=== PATIENT | female | born 1995 | race Caucasian/White ===

== ENCOUNTER 2016-04-10 14:03 | Outpatient (CLI) | payer OTHER ==
[~2016-04-10] VITALS: Ht 167.6 cm; Wt 61.0 kg
[2016-04-10] MEDS ORDERED: PRENTAB9 PO (14:07)
[2016-04-10 14:14] VITALS: BP 125/69
[2016-04-10] MEDS ORDERED: D5/LACTATED RINGERS 1000 ML IV ONE (15:00)
[2016-04-10] MEDS ORDERED: MVI -ADULT INJECTION 10 ML VIAL IV ONE (15:00)
[2016-04-10] MEDS ORDERED: BUTORPHANOL 2 MG/ML INJ (J0595) IV ONE (15:15)
[2016-04-10 15:25] LABS: MEAN CORPUSCULAR HEMOGLOBIN 28.3 pg (27.0-33.0); MEAN CORPUSCULAR HGB CONC 34.8 g/dl (32.0-36.5); MEAN CORPUSCULAR VOLUME 81.2 fl (80.0-96.0); RED CELL DISTRIBUTION WIDTH 12.8 % (11.5-14.5); WHITE BLOOD COUNT 13.8 K/mm3 (4.0-10.0)
[2016-04-10] MEDS ORDERED: LR IV ONE (15:30)
[2016-04-10] MEDS ORDERED: D5 IV ONE (15:30)
[2016-04-10] MEDS ORDERED: MULTIVITAMIN ADULT IV ONE (15:30)
[2016-04-10 15:46] LABS: ALBUMIN/GLOBULIN RATIO 0.94 (1.00-1.93); BILIRUBIN,DIRECT 0.1 MG/DL (0.0-0.2); BILIRUBIN,TOTAL 0.5 MG/DL (0.2-1.0); TOTAL PROTEIN 6.2 GM/DL (6.4-8.2)
--- NOTE | 2016-04-10 15:50 | REP ---
Clinical: Acute right upper quadrant abdominal pain. Technique: Turpin scale ultrasound using curved array transducer. Findings: The liver and pancreas are normal in contour, size, and echogenicity without focal hepatic or pancreatic lesions identified. The gallbladder is normal without gallstones, wall thickening or pericholecystic fluid. No biliary ductal dilatation is appreciated, and the common bile duct measures 2.5 mm diameter. The right kidney is normal in reniform shape and measures 10.7 x 4.7 x 4.5 cm with mild hydronephrosis likely secondary to . No ascites. Visualized portions of the abdominal aorta normal. Impression: Mild right hydronephrosis possibly related to . Signed by Adria Martinez MD 04/10/2016 03:41 P
[2016-04-10] MEDS ORDERED: ONDANSETRON 4MG/2ML VIAL (J2405) IV PRN (18:45)
== END 2016-04-10 22:27 | disposition home or self-care (01) ==
LOC: M LDO 14:03
PROVIDERS: ATTEND Advanced Practice Midwife
DX: O99.89 Other specified diseases and conditions complicating pregnancy, childbirth and the puerperium (principal); N13.30 Unspecified hydronephrosis; R10.11 Right upper quadrant pain; R11.2 Nausea with vomiting, unspecified; Z87.891 Personal history of nicotine dependence; Z3A.32 32 weeks gestation of pregnancy
CPT/HCPCS: 76705; 80076; 82150; 83690; 85027; 96374; 96375; J0595; J2405

== ENCOUNTER → 2016-04-20 | Outpatient (CLI) | payer OTHER ==
[~2016-04-20] MED LIST: PRENTAB9 PO
--- NOTE | 2016-04-20 15:56 | REP ---
Clinical: Growth discrepancy; size less than dates. Comparison: 03/25/2016 . Findings: Examination demonstrates a single live intrauterine in cephalic presentation. motion is identified by technologist. Placenta is noted posterior fundally and grade one without evidence for placenta previa or abruption. Amniotic fluid volume is normal. Cervix measures 3.1 cm in length and appears closed. No evidence for nuchal cord. Gestational age by first ultrasound 34 weeks 2 days with PRIYANKA 05/30/2016 . Gestational age by current measurements 32 weeks 1 day with PRIYANKA 06/14/2016 . FHR equals 141 beats per minute. BPD 8.5 cm 34 weeks 0 days HC 29.6 32 weeks 5 days AC 28.6 32 weeks 5 days FL 6.1 31 weeks 5 days HC/AC ratio 1.03 Estimated weight 1985 grams ( 16th percentile based on age by first ultrasound). Amniotic fluid index equals 10.7 cm (8.1 - 24.8) Impression: Single live advanced gestation in cephalic presentation. Estimated weight within normal range. No gross abnormalities identified Signed by Adria Martinez MD 04/20/2016 03:48 P
== END | disposition home or self-care (01) ==
LOC: M SMT 14:45
PROVIDERS: ATTEND Obstetrics & Gynecology
DX: O26.843 Uterine size-date discrepancy, third trimester (principal); Z36 Encounter for antenatal screening of mother; Z3A.32 32 weeks gestation of pregnancy

== ENCOUNTER → 2016-05-16 | Outpatient (REF) | payer OTHER | END | disposition home or self-care (01) | LOC: M LAB REF 17:40 | PROVIDERS: ATTEND Advanced Practice Midwife | DX: Z34.83 Encounter for supervision of other normal pregnancy, third trimester (principal); Z36 Encounter for antenatal screening of mother; Z3A.00 Weeks of gestation of pregnancy not specified ==

== ENCOUNTER → 2016-05-26 | Outpatient (CLI) | payer OTHER, MEDICAID ==
--- NOTE | 2016-05-26 11:59 | REP ---
Clinical: Size discrepancy . Comparison: 04/20/2016 . Findings: Examination demonstrates a single live intrauterine in cephalic presentation. motion is identified by technologist. Placenta is noted anteriorly and grade one without evidence for placenta previa or abruption. Amniotic fluid volume is normal. Gestational age by LMP 39 weeks 3 days with PRIYANKA 05/30/2016 . Gestational age by current measurements 36 weeks 5 days with PRIYANKA 06/18/2016 . FHR equals 141 beats per minute. BPD 9.2 cm 37 weeks 2 days HC 32.9 cm 37 weeks 2 days AC 33.9 cm 37 weeks 6 days FL 7.1 cm 36 weeks 3 days HC/AC ratio 0.97 Estimated weight 3188 grams ( 33rd percentile). Amniotic fluid index equals 7.7 cm SD ratio equals 3.14. Impression: Single live advanced gestation in cephalic presentation demonstrating appropriate interval growth. Nuchal cord cannot be excluded. Estimated weight within normal range. Amniotic fluid volume is lower limits of normal. Signed by Adria Martinez MD 05/26/2016 11:50 A
== END ==
LOC: M SMT 10:49
PROVIDERS: ATTEND Advanced Practice Midwife
DX: O26.843 Uterine size-date discrepancy, third trimester (principal)

== ENCOUNTER 2016-06-14 22:51 | Inpatient (IN) | payer OTHER, MEDICAID ==
[~2016-06-14] VITALS: Ht 167.6 cm; Wt 66.0 kg
[2016-06-14] MEDS ORDERED: MULT1TAB10 PO (23:15)
[2016-06-14 23:46] LABS: MEAN CORPUSCULAR HGB CONC 33.1 g/dl (32.0-36.5); MEAN CORPUSCULAR VOLUME 81.4 fl (80.0-96.0); RED CELL DISTRIBUTION WIDTH 14.1 % (11.5-14.5); WHITE BLOOD COUNT 11.7 K/mm3 (4.0-10.0)
[2016-06-15] VITALS (11 sets, daily range): BP systolic 112–145; BP diastolic 58–84
[2016-06-15] MEDS: miSOPROStol 50 MCG 1/2 TAB (S0191) PO SCH ×4 (00:31→11:45)
--- NOTE | 2016-06-15 02:45 | HPE ---
DATE OF ADMISSION: 06/14/2016 20-year-old G1, P0, female at 41-/17 weeks gestation by seven week ultrasound, estimated date of confinement (EDC) of 06/06/2016, presents for labor induction. She denies contractions or vaginal bleeding. COURSE: Patient initiated care at seven weeks gestation on 10/20/2015. Her first trimester blood pressure was 114/66, weight 135 pounds. was essentially unremarkable. MEDICAL HISTORY: Noncontributory. SURGICAL HISTORY: None. ALLERGIES: CEFTIN. SOCIAL HISTORY: The patient is . She smokes an occasional cigarette. Denies alcohol or drug use. FAMILY HISTORY: Noncontributory. PHYSICAL EXAMINATION: VITAL SIGNS: Blood pressure 124/70, in no apparent distress. HEAD AND NECK: Normal. LUNGS: Clear. HEART: Regular rate and rhythm. ABDOMEN: Nontender, gravid. heart tones category one. Contractions are irregular. STERILE VAGINAL EXAM: Cervix 2 cm, 70%, -2 station, posterior vertex. EXTREMITIES: Nontender. LABS: Blood type is O positive. Rubella immune. RPR nonreactive. Diabetes screen 100. GBS positive on 05/16/2016. ASSESSMENT: 20-year-old G1 at 41-1/7 weeks gestation presents for labor induction. Risks for induction were discussed. Antibiotics were started for group B strep status.
[2016-06-15] MEDS ORDERED: PROMETHAZINE INJ 25 MG/ML VIAL (J2550) IV PRN (08:15)
[2016-06-15] MEDS ORDERED: PENICILLIN G POTASSIUM IV 5 MU in D5W MINI-BAG PLUS 100 ML IV ONE (09:00)
[2016-06-15] MEDS ORDERED: BUTORPHANOL 2 MG/ML INJ (J0595) IV ONE (09:00)
[2016-06-15] MEDS ORDERED: BUTORPHANOL 2 MG/ML INJ (J0595) IV PRN (11:00)
[2016-06-15] MEDS ORDERED: OXYTOCIN 30 UNITS IN 0.9% NaCl 500ML IV BAG (J2590) As Ordered ONE (11:35)
[2016-06-15] MEDS ORDERED: PENICILLIN G POTASSIUM IV 2.5 MU in D5W 100 ML IV SCH (13:00)
--- NOTE | 2016-06-15 13:55 | DN ---
DATE OF DELIVERY: 06/15/2016 TIME OF : 12:07 GENDER: Female. SCORES: 9 and 9. WEIGHT: 3138 grams or 6 pounds 15 ounces. ANESTHESIA: None. LACERATIONS: None. COUNTS: Five laparotomy sponges accounted for prior to and after delivery. DELIVERY NOTE: On 06/15/2016, Mrs. Ramey, a 20-year-old, 1, now para 1 had a spontaneous vaginal delivery of a liveborn female . scores of 9 and 9. Weight 3138 grams or 6 pounds 15 ounces. Head was delivered OA. There was a nuchal cord that was manually reduced, followed by delivery of shoulders and corpus. The infant was then handed to the mother with good cry. Cord was clamped times two and was cut by the father of the baby under my direction. The placenta was then drained and delivered grossly intact. A premix bag of 500 mL of normal saline with 30 units of Pitocin was then bolused, along with uterine massage until the uterus was firm. On inspection, cervix, vagina, perineum were grossly intact and hemostatic. Mother and baby recovering in stable condition. The couple has decided to name their daughter, Marlena.
[2016-06-15] MEDS ORDERED: OXYTOCIN DRIP 30 UNITS in APPROPRIATE DILUENT 1 EA IV SCH (17:23)
[2016-06-15] MEDS ORDERED: ANUSOL HC CREAM 30GM TOP PRN (17:30)
[2016-06-15] MEDS ORDERED: DOCUSATE SODIUM 100 MG CAP PO PRN (17:30)
[2016-06-15] MEDS ORDERED: ACETAMINOPHEN 500 MG TAB PO PRN (17:30)
[2016-06-15] MEDS ORDERED: METHYLERGONOVINE MALEATE 0.2 MG TAB PO PRN (17:30)
[2016-06-15] MEDS ORDERED: DIBUCAINE 1% OINTMENT 30GM TOP PRN (17:30)
[2016-06-15] MEDS ORDERED: IBUPROFEN 800 MG TAB PO PRN (17:30)
[2016-06-15] MEDS ORDERED: RHOGAM 300 MCG (1500 IU) INJ (J2790) IM SCH (17:30)
[2016-06-15] MEDS ORDERED: MOM 30ML SUSPENSION UDC PO PRN (17:30)
[2016-06-15] MEDS ORDERED: MEASLES,MUMPS,RUBELLA VACCINE INJ (MMR-II) (90707) SC SCH (17:30)
[2016-06-16 06:07] VITALS: BP 103/55
[2016-06-16 09:00] VITALS: BP 103/55
[2016-06-16] MEDS ORDERED: ADACEL/BOOSTRIX VACCINE (DIPHTH/PERTUSS/ACELL/TETANUS)0.5ML SYR (90715) IM SCH (09:00)
[2016-06-16] MEDS: PRENATAL VITAMIN TAB PO SCH (09:06)
[2016-06-16 11:57] VITALS: BP 120/72
[2016-06-16] MEDS ORDERED: ADACEL/BOOSTRIX VACCINE (DIPHTH/PERTUSS/ACELL/TETANUS)0.5ML SYR (90715) IM ONE (16:00)
[2016-06-16 18:18] VITALS: BP 134/60
[2016-06-17 05:43] VITALS: BP 122/75
[2016-06-17] MEDS: PRENATAL VITAMIN TAB PO SCH (08:13)
[2016-06-17] MEDS ORDERED: ACET50TA PO (09:48)
[2016-06-17] MEDS ORDERED: IBUP-1114 PO (09:49)
== END 2016-06-17 14:15 | disposition home or self-care (01) | DRG 775 ==
LOC: M LDI 22:51 → M OBS 06-15 14:43
PROVIDERS: ADMIT Specialist; ATTEND Specialist
PROC: 3E033VJ Introduction of Other Hormone into Peripheral Vein, Percutaneous Approach (ICD-10-PCS; 2016-06-14)
PROC: 10E0XZZ Delivery of Products of Conception, External Approach (ICD-10-PCS; principal; 2016-06-15)
DX: O48.0 Post-term pregnancy (principal); Z37.0 Single live birth; Z3A.41 41 weeks gestation of pregnancy; O99.820 Streptococcus B carrier state complicating pregnancy

== ENCOUNTER → 2016-06-28 | Outpatient (REF) | payer OTHER, MEDICAID ==
[~2016-06-28] MED LIST changes: +ACET50TA PO; +IBUP-1114 PO; +MULT1TAB10 PO
== END ==
LOC: M LAB REF 16:47
PROVIDERS: ATTEND Internal Medicine
DX: R30.0 Dysuria (principal); R35.0 Frequency of micturition

== ENCOUNTER 2016-07-10 23:31 | Emergency (ER) | payer OTHER, MEDICAID ==
[~2016-07-10] VITALS: Ht 167.6 cm; Wt 59.4 kg
[2016-07-11] MEDS ORDERED: DERMABOND TOPICAL SKIN ADHESIVE TOP ONE (02:00)
[2016-07-11] MEDS ORDERED: TETANUS/DIPHTHERIA TOX ADSORB ADULT 0.5ML SYR/VIAL (90714) IM ONE (02:00)
[2016-07-11 02:15] VITALS: BP 126/65
--- NOTE | 2016-07-11 08:00 | REP ---
Right index finger four views: There is no fracture or dislocation. Mineralization joint spaces are normal. Soft tissue injury of the distal phalange is noted. There is no radiopaque foreign body. Signed by Tolu Nova MD 07/11/2016 07:51 A
== END 2016-07-11 02:21 | disposition home or self-care (01) ==
LOC: M ED 07-11 01:47
DX: S61.210A Laceration without foreign body of right index finger without damage to nail, initial encounter (principal); W45.8XXA Other foreign body or object entering through skin, initial encounter; Y92.019 Unspecified place in single-family (private) house as the place of occurrence of the external cause; Y93.89 Activity, other specified; Y99.8 Other external cause status; Z88.1 Allergy status to other antibiotic agents; R00.0 Tachycardia, unspecified; Z87.440 Personal history of urinary (tract) infections; F41.9 Anxiety disorder, unspecified

== ENCOUNTER → 2016-07-21 | Outpatient (REF) | payer OTHER, MEDICAID | LOC: M LAB REF 18:47 | PROVIDERS: ATTEND Internal Medicine | DX: Z53.9 Procedure and treatment not carried out, unspecified reason (principal) ==

== ENCOUNTER → 2017-01-03 | Outpatient (REF) | payer OTHER, MEDICAID | LOC: M LAB REF 16:31 | PROVIDERS: ATTEND Nurse Practitioner Family | DX: R35.0 Frequency of micturition (principal); J34.81 Nasal mucositis (ulcerative) ==

== ENCOUNTER → 2017-03-15 | Outpatient (REF) | payer OTHER, MEDICAID | LOC: M LAB REF 12:50 | PROVIDERS: ATTEND Internal Medicine | DX: J02.9 Acute pharyngitis, unspecified (principal) ==

== ENCOUNTER → 2017-11-23 | Outpatient (CLI) | payer OTHER ==
[2017-11-23 13:24] LABS: BASO % 0.3 % (0.0-1.0); EOS # 0.1 10^3/uL (0.0-0.50); EOS % 0.6 % (0.0-3.0); HEMATOCRIT 36.7 % (36.0-47.0); HEMOGLOBIN 12.6 g/dl (12.0-15.5); IMMATURE GRANULOCYTE % 0.4 % (0-3.0); LYMPH # 1.6 10^3/uL (1.5-6.5); LYMPH % 16.4 % (24.0-44.0); MEAN CORPUSCULAR HEMOGLOBIN 28.2 pg (27.0-33.0); MEAN CORPUSCULAR HGB CONC 34.3 g/dl (32.0-36.5); MEAN CORPUSCULAR VOLUME 82.1 fl (80.0-96.0); MONO # 0.4 10^3/uL (0.0-0.8); MONO % 4.1 % (0.0-5.0); NEUTROPHILS # 7.5 10^3/uL (1.8-7.7); NEUTROPHILS % 78.2 % (36.0-66.0); PLATELET COUNT, AUTOMATED 253 10^3/uL (150-450); RED BLOOD COUNT 4.47 10^6/uL (4.00-5.40); RED CELL DISTRIBUTION WIDTH 13.6 % (11.5-14.5); WHITE BLOOD COUNT 9.6 10^3/uL (4.0-10.0)
[2017-11-23 17:10] LABS: CHLAMYDIA DNA AMPLIFICATION NEGATIVE (NEGATIVE); GC DNA AMPLIFICATION NEGATIVE (NEGATIVE)
[2017-11-24 09:50] LABS: RUBELLA IgG QUALITATIVE IMMUNE (IMMUNE)
[2017-11-24 09:59] LABS: HBsAg Prenatal NEGATIVE (NEGATIVE)
[2017-11-24 10:19] LABS: HEPATITIS C VIRUS ABY INDEX 0.1 INDEX (<0.8)
[2017-11-24 10:20] LABS: HIV 1&2 SCREEN CENTAUR NEGATIVE (NEGATIVE)
== END ==
LOC: M LAB 12:18
DX: Z34.81 Encounter for supervision of other normal pregnancy, first trimester (principal); Z36.89 Encounter for other specified antenatal screening; Z3A.09 9 weeks gestation of pregnancy
CPT/HCPCS: 86762

== ENCOUNTER → 2018-01-15 | Outpatient (CLI) | payer OTHER ==
[2018-01-15 13:46] LABS: HEMATOCRIT 34.7 % (36.0-47.0); HEMOGLOBIN 11.7 g/dl (12.0-15.5); MEAN CORPUSCULAR HEMOGLOBIN 28.3 pg (27.0-33.0); MEAN CORPUSCULAR HGB CONC 33.7 g/dl (32.0-36.5); MEAN CORPUSCULAR VOLUME 83.8 fl (80.0-96.0); PLATELET COUNT, AUTOMATED 241 10^3/uL (150-450); RED BLOOD COUNT 4.14 10^6/uL (4.00-5.40); RED CELL DISTRIBUTION WIDTH 12.9 % (11.5-14.5); WHITE BLOOD COUNT 7.2 10^3/uL (4.0-10.0)
[2018-01-15 14:16] LABS: GLUCOSE CHALLENGE TEST 1 HOUR 84 MG/DL (LESS THAN 140)
== END ==
LOC: M SMT 10:22
DX: Z34.83 Encounter for supervision of other normal pregnancy, third trimester (principal); Z36.89 Encounter for other specified antenatal screening
CPT/HCPCS: 82950

== ENCOUNTER → 2018-08-24 | Outpatient (REF) | payer OTHER ==
[~2018-08-24] MED LIST changes: -ACET50TA PO; +MAPA500T2 PO
== END ==
LOC: M LAB REF 18:53
PROVIDERS: ATTEND Specialist
DX: Z12.4 Encounter for screening for malignant neoplasm of cervix (principal)

== ENCOUNTER → 2022-11-15 | Outpatient (REF) | payer OTHER | LOC: M LAB REF 20:49 | PROVIDERS: ATTEND Physician Assistant Medical | DX: J02.9 Acute pharyngitis, unspecified (principal) ==

== ENCOUNTER → 2022-12-13 | Outpatient (CLI) | payer OTHER | LOC: M RAD 12:48 | PROVIDERS: ATTEND Physician Assistant | DX: J20.9 Acute bronchitis, unspecified (principal) ==

== ENCOUNTER → 2022-12-13 | Outpatient (REF) | payer OTHER | LOC: M LAB REF 12:41 | PROVIDERS: ATTEND Physician Assistant | DX: J20.9 Acute bronchitis, unspecified (principal) ==

== ENCOUNTER 2023-02-01 12:32 | Emergency (ER) | payer OTHER ==
[~2023-02-01] VITALS: Ht 167.6 cm; Wt 70.7 kg
[2023-02-01] MEDS ORDERED: AMIT10TA7 (12:39)
[2023-02-01] MEDS ORDERED: OFAT20PE (12:39)
[2023-02-01] MEDS ORDERED: MIREIUD (12:41)
[2023-02-01] MEDS ORDERED: DOXY-443 PO (15:43)
[2023-02-01 15:50] VITALS: BP 136/72; TEMP 98.9; O2SAT 98
== END 2023-02-01 15:52 | disposition home or self-care (01) ==
LOC: M ED 12:32
DX: L03.313 Cellulitis of chest wall (principal); Z88.0 Allergy status to penicillin; Z88.1 Allergy status to other antibiotic agents; Z79.810 Long term (current) use of selective estrogen receptor modulators (SERMs); Z79.2 Long term (current) use of antibiotics; Z79.899 Other long term (current) drug therapy

== ENCOUNTER → 2023-03-06 | Outpatient (REF) ==
[~2023-03-06] MED LIST changes: +AMIT10TA7; +DOXY-443 PO; +MIREIUD; +OFAT20PE
[2023-03-06 12:20] LABS: RSV AMPLIFICATION NEGATIVE (NEGATIVE)
== END ==
LOC: M EMP 08:11
PROVIDERS: ATTEND Family Medicine
DX: Z53.9 Procedure and treatment not carried out, unspecified reason (principal); Z11.52 Encounter for screening for COVID-19

== ENCOUNTER → 2023-05-04 | Outpatient (REF) | payer OTHER | LOC: M LAB REF 16:12 | PROVIDERS: ATTEND Physician Assistant | DX: J02.9 Acute pharyngitis, unspecified (principal) ==

== ENCOUNTER → 2023-05-08 | Outpatient (REF) | LOC: M EMP 08:27 | PROVIDERS: ATTEND Family Medicine | DX: Z53.9 Procedure and treatment not carried out, unspecified reason (principal) ==

== ENCOUNTER 2023-07-06 07:41 | Outpatient (RCR) | payer OTHER | END 2023-07-09 | LOC: M PT 07:41 | PROVIDERS: ATTEND Physician Assistant | DX: M25.511 Pain in right shoulder (principal); M54.41 Lumbago with sciatica, right side ==

== ENCOUNTER → 2023-08-08 | Outpatient (REF) | payer OTHER ==
[~2023-08-08] MED LIST changes: +DOXY-323 PO; -DOXY-443 PO
== END ==
LOC: M SFHCWAGY 14:54
PROVIDERS: ATTEND Nurse Practitioner Family
DX: R87.610 Atypical squamous cells of undetermined significance on cytologic smear of cervix (ASC-US) (principal); R10.2 Pelvic and perineal pain

== ENCOUNTER → 2023-08-08 | Outpatient (RCR) | payer OTHER | LOC: M PT 07-12 12:22 | PROVIDERS: ATTEND Physician Assistant | DX: M25.511 Pain in right shoulder (principal) | CPT/HCPCS: 87086; 87624; 97010; 97110; 97140; G0123 ==

== ENCOUNTER → 2023-09-28 | Outpatient (CLI) | payer OTHER ==
[2023-09-28 15:02] LABS: BASO # 0.1 10^3/uL (0.0-0.2); BASO % 0.8 % (0.0-1.0); EOS # 0.1 10^3/uL (0.0-0.5); EOS % 1.2 % (0.0-3.0); HEMATOCRIT 43.9 % (36.0-47.0); HEMOGLOBIN 14.8 g/dl (12.0-15.5); LYMPH # 1.6 10^3/uL (1.5-5.0); LYMPH % 20.1 % (24.0-44.0); MEAN CORPUSCULAR HEMOGLOBIN 27.9 pg (27.0-33.0); MEAN CORPUSCULAR HGB CONC 33.7 g/dl (32.0-36.5); MEAN CORPUSCULAR VOLUME 82.8 fl (80.0-96.0); MONO # 0.6 10^3/uL (0.0-0.8); MONO % 7.9 % (2.0-8.0); NEUTROPHILS # 5.5 10^3/uL (1.5-8.5); NEUTROPHILS % 69.9 % (36.0-66.0); PLATELET COUNT, AUTOMATED 329 10^3/uL (150-450); WHITE BLOOD COUNT 7.8 10^3/uL (4.0-10.0)
[2023-09-28 15:38] LABS: ALBUMIN 4.1 G/DL (3.2-5.2); ALKALINE PHOSPHATASE 91 U/L (46-116); ALT/SGPT 25 U/L (7.0-40); AST/SGOT < 8 U/L (<34); BILIRUBIN,TOTAL 0.5 MG/DL (0.3-1.2); BLOOD UREA NITROGEN 9 MG/DL (9-23); CALCIUM LEVEL 9.3 MG/DL (8.5-10.1); CARBON DIOXIDE LEVEL 28 MMOL/L (20-31); CHLORIDE LEVEL 107 MMOL/L (98-107); CREATININE FOR GFR 0.67 MG/DL (0.55-1.30); GLOMERULAR FILTRATION RATE > 60.0 (>60); GLUCOSE, FASTING 69 MG/DL (60-100); POTASSIUM SERUM 4.2 MMOL/L (3.5-5.1); SODIUM LEVEL 140 MMOL/L (136-145); TOTAL PROTEIN 6.5 G/DL (5.7-8.2)
[2023-09-29 10:43] LABS: HEPATITIS B SURF AB QUANT < 5 mIU/mL (> OR = 10)
[2023-09-29 13:37] LABS: MUMPS VIRUS IgG ANTIBODY < 9.00 AU/mL (>10.99)
== END ==
LOC: M LAB 11:58
PROVIDERS: ATTEND Physician Assistant
DX: Z01.84 Encounter for antibody response examination (principal); Z11.1 Encounter for screening for respiratory tuberculosis

== ENCOUNTER → 2023-09-29 | Outpatient (CLI) | payer OTHER | LOC: M WHC 11:49 | PROVIDERS: ATTEND Nurse Practitioner Family | DX: R10.2 Pelvic and perineal pain (principal); Z97.5 Presence of (intrauterine) contraceptive device; N83.202 Unspecified ovarian cyst, left side ==

== ENCOUNTER → 2023-10-03 | Outpatient (CLI) | payer OTHER ==
[2023-10-03 16:09] LABS: BASO # 0.1 10^3/uL (0.0-0.2); BASO % 0.6 % (0.0-1.0); EOS # 0.1 10^3/uL (0.0-0.5); EOS % 0.6 % (0.0-3.0); HEMATOCRIT 42.6 % (36.0-47.0); HEMOGLOBIN 14.4 g/dl (12.0-15.5); LYMPH # 1.8 10^3/uL (1.5-5.0); LYMPH % 17.3 % (24.0-44.0); MEAN CORPUSCULAR HEMOGLOBIN 27.9 pg (27.0-33.0); MEAN CORPUSCULAR HGB CONC 33.8 g/dl (32.0-36.5); MEAN CORPUSCULAR VOLUME 82.4 fl (80.0-96.0); MONO # 0.5 10^3/uL (0.0-0.8); MONO % 4.8 % (2.0-8.0); NEUTROPHILS # 7.9 10^3/uL (1.5-8.5); NEUTROPHILS % 76.3 % (36.0-66.0); PLATELET COUNT, AUTOMATED 304 10^3/uL (150-450); RED BLOOD COUNT 5.17 10^6/uL (4.00-5.40); WHITE BLOOD COUNT 10.3 10^3/uL (4.0-10.0)
[2023-10-03 17:24] LABS: IMMUNOGLOBULIN G 826 MG/DL (650-1600)
[2023-10-03 17:25] LABS: ALBUMIN 4.2 G/DL (3.2-5.2); ALKALINE PHOSPHATASE 90 U/L (46-116); ALT/SGPT 33 U/L (7.0-40); AST/SGOT 13 U/L (<34); BILIRUBIN,TOTAL 0.6 MG/DL (0.3-1.2); BLOOD UREA NITROGEN 8 MG/DL (9-23); CALCIUM LEVEL 9.3 MG/DL (8.5-10.1); CARBON DIOXIDE LEVEL 28 MMOL/L (20-31); CHLORIDE LEVEL 105 MMOL/L (98-107); GLOMERULAR FILTRATION RATE > 60.0 (>60); GLUCOSE, FASTING 69 MG/DL (60-100); IMMUNOGLOBULIN A 103.7 MG/DL (40-350); POTASSIUM SERUM 4.4 MMOL/L (3.5-5.1); SODIUM LEVEL 138 MMOL/L (136-145); TOTAL PROTEIN 6.6 G/DL (5.7-8.2)
== END ==
LOC: M LAB 09-29 12:55
PROVIDERS: ATTEND Nurse Practitioner
DX: G35 Multiple sclerosis (principal)

== ENCOUNTER → 2023-10-04 | Outpatient (REF) | payer OTHER | LOC: M SFHCWAGY 17:05 | PROVIDERS: ATTEND Nurse Practitioner Family | DX: N73.9 Female pelvic inflammatory disease, unspecified (principal) ==

== ENCOUNTER → 2023-10-16 | Outpatient (CLI) | payer OTHER | LOC: M WHC 13:02 | PROVIDERS: ATTEND Nurse Practitioner Family | DX: N64.4 Mastodynia (principal) ==

== ENCOUNTER → 2023-11-29 | Outpatient (CLI) | payer OTHER ==
[2023-11-29 12:32] LABS: BASO # 0.1 10^3/uL (0.0-0.2); BASO % 0.8 % (0.0-1.0); EOS # 0.2 10^3/uL (0.0-0.5); EOS % 1.9 % (0.0-3.0); HEMATOCRIT 40.4 % (36.0-47.0); HEMOGLOBIN 13.7 g/dl (12.0-15.5); LYMPH # 1.8 10^3/uL (1.5-5.0); LYMPH % 21.6 % (24.0-44.0); MEAN CORPUSCULAR HEMOGLOBIN 28.1 pg (27.0-33.0); MEAN CORPUSCULAR HGB CONC 33.9 g/dl (32.0-36.5); MEAN CORPUSCULAR VOLUME 82.8 fl (80.0-96.0); MONO # 0.6 10^3/uL (0.0-0.8); MONO % 6.6 % (2.0-8.0); NEUTROPHILS # 5.7 10^3/uL (1.5-8.5); PLATELET COUNT, AUTOMATED 278 10^3/uL (150-450); RED BLOOD COUNT 4.88 10^6/uL (4.00-5.40); WHITE BLOOD COUNT 8.3 10^3/uL (4.0-10.0)
== END ==
LOC: M LAB 11:40
PROVIDERS: ATTEND Nurse Practitioner
DX: G35 Multiple sclerosis (principal)

== ENCOUNTER → 2023-12-22 | Outpatient (REF) | payer OTHER ==
[2023-12-22 16:55] LABS: Trichomonas vaginalis (AMP) NOT DETECTED (NEGATIVE)
[2023-12-22 17:19] LABS: GC DNA AMPLIFICATION NEGATIVE (NEGATIVE)
== END ==
LOC: M SFHCWAGY 15:00
PROVIDERS: ATTEND Nurse Practitioner Family
DX: N89.8 Other specified noninflammatory disorders of vagina (principal); Z11.3 Encounter for screening for infections with a predominantly sexual mode of transmission

== ENCOUNTER → 2024-01-12 | Outpatient (CLI) | payer OTHER ==
[~2024-01-12] MED LIST changes: -DOXY-323 PO; +DOXY-441 PO
== END ==
LOC: M WHC 12:12
PROVIDERS: ATTEND Nurse Practitioner Family
DX: N83.202 Unspecified ovarian cyst, left side (principal)

== ENCOUNTER → 2024-03-26 | Outpatient (REF) | LOC: M EMP 07:43 | PROVIDERS: ATTEND Family Medicine | DX: Z11.52 Encounter for screening for COVID-19 (principal) ==

== ENCOUNTER → 2024-06-27 | Outpatient (CLI) | payer OTHER | LOC: M RAD 09:34 | PROVIDERS: ATTEND Family Medicine | DX: M54.6 Pain in thoracic spine (principal) ==

== ENCOUNTER → 2024-10-17 | Outpatient (CLI) | payer OTHER ==
[~2024-10-17] MED LIST changes: +AMIT10TA11; -AMIT10TA7
[2024-10-17 14:33] LABS: BASO # 0.1 10^3/uL (0.0-0.2); BASO % 1.0 % (0.0-1.0); EOS # 0.1 10^3/uL (0.0-0.5); EOS % 1.0 % (0.0-3.0); LYMPH # 1.4 10^3/uL (1.5-5.0); LYMPH % 16.5 % (24.0-44.0); MONO # 0.5 10^3/uL (0.0-0.8); MONO % 6.5 % (2.0-8.0); NEUTROPHILS # 6.2 10^3/uL (1.5-8.5); NEUTROPHILS % 74.8 % (36.0-66.0); PLATELET COUNT, AUTOMATED 311 10^3/uL (150-450)
[2024-10-17 15:00] LABS: ALT/SGPT 22 U/L (7.0-40); AST/SGOT 15 U/L (<34); CALCIUM LEVEL 9.2 MG/DL (8.5-10.1); CARBON DIOXIDE LEVEL 28 MMOL/L (20-31); CHLORIDE LEVEL 105 MMOL/L (98-107); CREATININE FOR GFR 0.73 MG/DL (0.55-1.30); GLOMERULAR FILTRATION RATE > 90.0 (>60); POTASSIUM SERUM 4.2 MMOL/L (3.5-5.1); SODIUM LEVEL 145 MMOL/L (136-145)
== END ==
LOC: M LAB 13:17
PROVIDERS: ATTEND Physician Assistant
DX: G35 Multiple sclerosis (principal); Z11.1 Encounter for screening for respiratory tuberculosis

== ENCOUNTER → 2024-12-24 | Outpatient (REF) | payer OTHER | LOC: M PLALAB 11:55 | PROVIDERS: ATTEND Nurse Practitioner Family | DX: N89.8 Other specified noninflammatory disorders of vagina (principal) ==

== ENCOUNTER → 2025-01-16 | Outpatient (REF) | payer OTHER | LOC: M SFHCWAGY 16:48 | PROVIDERS: ATTEND Nurse Practitioner Family | DX: N89.8 Other specified noninflammatory disorders of vagina (principal) ==

== ENCOUNTER → 2025-03-26 | Outpatient (REF) | payer OTHER ==
[2025-03-28 13:57] LABS: HPV APTIMA Not Detected (Not Detected)
== END ==
LOC: M SFHCWAGY 10:22
PROVIDERS: ATTEND Nurse Practitioner Family
DX: Z11.51 Encounter for screening for human papillomavirus (HPV) (principal)
CPT/HCPCS: 87624; G0123